=== PATIENT | male | born 1945 | race African-American/Black ===

== ENCOUNTER 2020-11-07 03:18 | Inpatient (IN) | payer MEDICARE ==
[2020-11-07] MEDS ORDERED: Calcium Chloride 1 GM/10 ML Abboject SYRINGE ONE (03:24)
[2020-11-07] MEDS ORDERED: Nitroglycerin 50 MG/250 ML BOT 250 ML ONE (03:36)
[2020-11-07 03:52] LABS: Actual Bicarbonate (HCO3a) 26.7 mEq/L (22-28); Analyzer IN Cardio ER; Base Excess (BEa) -2.5 mEq/L (-2.0 to +3.0); Calcium, Ionized (arterial) 1.13 mmol/L (1.12-1.30); Carboxyhemoglobin (COHb) 0.7 gm% (0.0-3.0); Hemoglobin (Hb) 13.4 g/dL (14.0-18.0); O2 Tension (PaO2), arterial 90.5 mmHg (> 70.0); Potassium - ABG Lab 4.57 mmol/L (3.70-5.30)
[2020-11-07 03:54] LABS: #Basophils 0.1 thou/uL (0.0-0.2); #Eosinphils 0.6 thou/uL (0.0-0.7); #Lymphocytes 5.2 thou/uL (1.20-3.40); #Neutrophils 4.4 thou/uL (1.40-6.50); %Basophils 0.5 % (0.0-1.0); %Lymphocytes 46.1 % (21.0-51.0); %Monocytes 9.3 % (0.0-10.0); %Neutrophils 39.1 % (42.0-75.0); Hemoglobin 14.2 g/dL (14.0-18.0); Mean Corpuscular HGB CONC 31.5 g/dL (32.0-36.0); Mean Corpuscular Hemoglobin 29.4 pg (27.0-31.0); Mean Corpuscular Volume 93.4 fL (78.0-98.0); Mean Platelet Volume 9.6 fL (7.4-10.4); Platelet Count 196 thou/uL (130-400); Red Blood Cell (RBC) Count 4.83 mill/uL (4.70-6.10); White Blood Cell (WBC) Count 11.2 thou/uL (4.8-10.8)
[2020-11-07 03:56] LABS: CO2 Tension 67.6 mmHg (35.0-45.0); Puncture Site RRA; pH, Arterial 7.22 (7.35-7.45)
[2020-11-07 04:03] LABS: PTT 29.7 sec (22.9-36.1); Prothrombin Time 13.1 sec (12.0-14.7)
[2020-11-07 04:11] LABS: ALT (SGPT) 24 U/L (8-55); AST (SGOT) 32 U/L (5-34); Albumin 4.5 g/dL (3.4-4.8); Alkaline Phosphatase 119 U/L (40-110); Anion Gap 25 mmol/L (10-20); BUN (Urea Nitrogen) 55 mg/dL (8.4-25.7); Bilirubin, Total 0.8 mg/dL (0.2-1.2); Calc. Creatinine Clearance 0 mL/min (70-130); Calcium 9.6 mg/dL (7.8-10.44); Carbon Dioxide 23 mmol/L (23-31); Chloride 94 mmol/L (98-107); Globulin 3.8 g/dL (2.4-3.5); Glucose 150 mg/dL (83-110); Potassium 4.8 mmol/L (3.5-5.1); Protein, Total 8.3 g/dL (5.8-8.1); Sodium 137 mmol/L (136-145)
[2020-11-07 04:27] LABS: SARS-CoV-2 NAA Rapid Test Not Detected (NotDetected)
[2020-11-07 04:32] LABS: CKMB 2.4 ng/mL (0-6.6)
[2020-11-07] MEDS ORDERED: Aspirin Chewable 81 MG TAB ONE (05:00)
[2020-11-07] MEDS ORDERED: Docusate 100 MG CAP PO PRN (05:33)
[2020-11-07] MEDS ORDERED: Ondansetron ODT 4 MG TAB PO PRN (05:33)
[2020-11-07] MEDS ORDERED: Ondansetron PF 4 MG/2 ML Vial IVP PRN (06:42)
[2020-11-07 06:47] VITALS: BMI 23.1
[2020-11-07] MEDS: NIFEdipine XL 90 MG TAB PO SCH (08:00)
[2020-11-07] MEDS: Famotidine 20 MG TAB PO SCH (08:00)
[2020-11-07] MEDS: Carvedilol 3.125 MG TAB PO SCH ×2 (08:00→20:51)
[2020-11-07] MEDS: hydrALAZINE 25 MG TAB PO SCH ×2 (08:01→20:49)
[2020-11-07] MEDS ORDERED: Non-Formulary Item 1 EACH (Ferric Citrate [Auryxia] 210 MG Tablet) PO SCH (09:00)
[2020-11-07] MEDS ORDERED: Lisinopril 5 MG TAB PO SCH (09:00)
[2020-11-07] MEDS ORDERED: Heparin 5,000 UNITS/ML VIAL SC SCH (09:00)
[2020-11-07] MEDS: Aspirin 325 MG TAB PO SCH (09:09)
[2020-11-07 10:58] LABS: Magnesium 1.6 mg/dL (1.6-2.6)
[2020-11-07 11:05] LABS: Troponin I 0.341 ng/mL (< 0.028)
[2020-11-07 11:15] LABS: HBSAg Index 0.24 S/CO (0-0.99); Hep B Surf Ag Non-Reactive S/CO (NonReactive)
[2020-11-07] MEDS ORDERED: Communication Order-Pharmacy FS ONE (14:32)
[2020-11-07 14:35] LABS: Troponin I 0.397 ng/mL (< 0.028)
[2020-11-07] MEDS ORDERED: Heparin 25,000 units/D5W 500 ML IVPB SCH (14:45)
[2020-11-07] MEDS: Heparin 10,000 UNITS/ 10 ML VIAL SLOW IVP SCH (15:50)
[2020-11-07 16:54] LABS: Hemoglobin 12.5 g/dL (14.0-18.0); Platelet Count 125 thou/uL (130-400)
[2020-11-07 17:22] LABS: PTT 214.8 sec (22.9-36.1)
[2020-11-07] MEDS ORDERED: hydrALAZINE 20 MG/ML VIAL SLOW IVP PRN ×2 (21:10→21:22)
[2020-11-08] MEDS ORDERED: Nitroglycerin 2% Ointment 1 INCH/1 GM Packet ONE ×2 (01:53→08:23)
[2020-11-08] MEDS ORDERED: Nitroglycerin 2% Ointment 1 INCH/1 GM Packet TOP SCH (02:00)
[2020-11-08] MEDS ORDERED: Acetaminophen 500 MG TAB PO PRN (02:12)
[2020-11-08] MEDS ORDERED: Nitroglycerin 50 MG/250 ML BOT 250 ML ONE (03:12)
[2020-11-08] MEDS: Nitroglycerin 50 MG/250 ML BOT 250 ML IVPB SCH ×2 (03:15→12:42)
[2020-11-08 03:37] LABS: #Eosinphils 0.2 thou/uL (0.0-0.7); #Lymphocytes 0.9 thou/uL (1.20-3.40); #Monocytes 0.6 thou/uL (0.11-0.59); #Neutrophils 3.4 thou/uL (1.40-6.50); %Basophils 0.6 % (0.0-1.0); %Eosinophils 4.7 % (0.0-10.0); %Lymphocytes 17.4 % (21.0-51.0); %Monocytes 12.2 % (0.0-10.0); %Neutrophils 65.1 % (42.0-75.0); Mean Corpuscular HGB CONC 32.3 g/dL (32.0-36.0); Mean Corpuscular Hemoglobin 29.6 pg (27.0-31.0); Mean Corpuscular Volume 91.7 fL (78.0-98.0); Mean Platelet Volume 10.4 fL (7.4-10.4); Platelet Count 123 thou/uL (130-400); RBC Distribution Width 15.9 % (11.5-14.5); Red Blood Cell (RBC) Count 4.05 mill/uL (4.70-6.10); White Blood Cell (WBC) Count 5.3 thou/uL (4.8-10.8)
[2020-11-08 03:48] LABS: Prothrombin Time 13.7 sec (12.0-14.7)
[2020-11-08 03:49] LABS: PTT 40.5 sec (22.9-36.1)
[2020-11-08 03:54] LABS: Anion Gap 21 mmol/L (10-20); BUN (Urea Nitrogen) 33 mg/dL (8.4-25.7); Calc. Creatinine Clearance 9 mL/min (70-130); Calcium 9.1 mg/dL (7.8-10.44); Carbon Dioxide 21 mmol/L (23-31); Chloride 99 mmol/L (98-107); Glucose 92 mg/dL (83-110); Potassium 4.2 mmol/L (3.5-5.1); Sodium 137 mmol/L (136-145)
[2020-11-08] MEDS: Heparin 10,000 UNITS/ 10 ML VIAL SLOW IVP SCH ×2 (04:03→12:29)
[2020-11-08 06:07] LABS: Troponin I 0.242 ng/mL (< 0.028)
[2020-11-08] MEDS: hydrALAZINE 25 MG TAB PO SCH ×3 (08:45→20:14)
[2020-11-08] MEDS: Aspirin 325 MG TAB PO SCH (08:45)
[2020-11-08] MEDS: NIFEdipine XL 90 MG TAB PO SCH (08:45)
[2020-11-08] MEDS: Carvedilol 6.25 MG TAB PO SCH ×2 (08:45→17:06)
[2020-11-08] MEDS: Famotidine 20 MG TAB PO SCH (08:46)
[2020-11-08] MEDS ORDERED: Aspirin Chewable 81 MG TAB PO SCH (09:00)
[2020-11-08] MEDS ORDERED: Communication Order-Pharmacy FS SCH (17:45)
[2020-11-09 04:06] LABS: Anion Gap 20 mmol/L (10-20); BUN (Urea Nitrogen) 46 mg/dL (8.4-25.7); Calc. Creatinine Clearance 7 mL/min (70-130); Calcium 9.1 mg/dL (7.8-10.44); Carbon Dioxide 26 mmol/L (23-31); Chloride 94 mmol/L (98-107); Glucose 92 mg/dL (83-110); Potassium 4.6 mmol/L (3.5-5.1); Sodium 135 mmol/L (136-145)
[2020-11-09 04:49] LABS: Band 2 % (5-11); Eosinophils 7 % (0-10); Lymphocytes 20 % (21-51); MDiff Complete? YES; Mean Corpuscular HGB CONC 32.5 g/dL (32.0-36.0); Mean Corpuscular Hemoglobin 29.7 pg (27.0-31.0); Mean Corpuscular Volume 91.2 fL (78.0-98.0); Mean Platelet Volume 10.2 fL (7.4-10.4); Monocytes 11 % (0-10); Neutrophil 60 % (42-75); Platelet Count 108 thou/uL (130-400); Platelet Morphology Comment Appears Decreased; RBC Distribution Width 15.8 % (11.5-14.5); White Blood Cell (WBC) Count 5.5 thou/uL (4.8-10.8)
[2020-11-09] MEDS: Carvedilol 6.25 MG TAB PO SCH ×2 (06:24→18:18)
[2020-11-09] MEDS: hydrALAZINE 25 MG TAB PO SCH ×3 (08:47→20:19)
[2020-11-09] MEDS: Famotidine 20 MG TAB PO SCH (08:47)
[2020-11-09] MEDS: cloNIDine 0.1mg/24 Hour PATCH TD SCH ×2 (08:49→09:01)
[2020-11-09] MEDS: NIFEdipine XL 90 MG TAB PO SCH (08:53)
[2020-11-09] MEDS ORDERED: Iopamidol 370 76% 100 ML VIAL ONE (08:53)
[2020-11-09] MEDS: Aspirin 325 MG TAB PO SCH (08:54)
[2020-11-09] MEDS ORDERED: Spironolactone 25 MG TAB PO SCH ×2 (09:45→21:00)
[2020-11-09] MEDS ORDERED: Lidocaine 1% (PF) 30 ML VIAL ONE (11:08)
[2020-11-09] MEDS ORDERED: Midazolam HCl 2 mg/2 ml Vial ONE (11:35)
[2020-11-09] MEDS ORDERED: Fentanyl 100 MCG/2 ML VIAL ONE (11:35)
[2020-11-09 15:47] LABS: Hemoglobin 12.5 g/dL (14.0-18.0); Platelet Count 113 thou/uL (130-400)
[2020-11-10 04:19] LABS: Prothrombin Time 13.5 sec (12.0-14.7)
[2020-11-10 04:20] LABS: PTT 31.9 sec (22.9-36.1)
[2020-11-10] MEDS: hydrALAZINE 25 MG TAB PO SCH (04:26)
[2020-11-10 04:29] LABS: Anion Gap 18 mmol/L (10-20); BUN (Urea Nitrogen) 22 mg/dL (8.4-25.7); Band 1 % (5-11); Calc. Creatinine Clearance 10 mL/min (70-130); Calcium 9.2 mg/dL (7.8-10.44); Carbon Dioxide 25 mmol/L (23-31); Chloride 97 mmol/L (98-107); Eosinophils 5 % (0-10); Glucose 74 mg/dL (83-110); Hemoglobin 12.2 g/dL (14.0-18.0); Hypochromia SLIGHT = 6-15 cells (100X) (0-5/hpf); Lymphocytes 18 % (21-51); MDiff Complete? YES; Mean Corpuscular HGB CONC 32.6 g/dL (32.0-36.0); Mean Corpuscular Hemoglobin 30.2 pg (27.0-31.0); Mean Corpuscular Volume 92.5 fL (78.0-98.0); Monocytes 13 % (0-10); Neutrophil 59 % (42-75); Platelet Count 109 thou/uL (130-400); Platelet Morphology Comment Appears Decreased; Potassium 4.3 mmol/L (3.5-5.1); RBC Distribution Width 15.7 % (11.5-14.5); Reactive Lymphocytes 4 % (0-10); Red Blood Cell (RBC) Count 4.05 mill/uL (4.70-6.10); Sodium 136 mmol/L (136-145); White Blood Cell (WBC) Count 5.1 thou/uL (4.8-10.8)
[2020-11-10] MEDS ORDERED: Spironolactone 25 MG TAB PO SCH (08:00)
[2020-11-10] MEDS: Carvedilol 6.25 MG TAB PO SCH (09:38)
[2020-11-10] MEDS: NIFEdipine XL 90 MG TAB PO SCH (09:38)
[2020-11-10] MEDS: Famotidine 20 MG TAB PO SCH (09:38)
[2020-11-10 09:39] VITALS: BP 149/62
[2020-11-10] MEDS: Aspirin 325 MG TAB PO SCH (09:43)
[2020-11-10 11:34] VITALS: TEMP 98
[2020-11-11] MEDS ORDERED: Aspirin Chewable 81 MG TAB PO SCH (09:00)
== END 2020-11-10 13:01 | disposition home or self-care (01) | DRG 280 ==
LOC: ERS 03:18 → EDBD 03:18 → IMCU/EMU 04:51
PROVIDERS: ADMIT Student in an Organized Health Care Education/Training Program; ATTEND Student in an Organized Health Care Education/Training Program
PROC: 5A1D70Z Performance of Urinary Filtration, Intermittent, Less than 6 Hours Per Day (ICD-10-PCS; 2020-11-07)
PROC: 5A09457 Assistance with Respiratory Ventilation, 24-96 Consecutive Hours, Continuous Positive Airway Pressure (ICD-10-PCS; 2020-11-07)
PROC: B2111ZZ Fluoroscopy of Multiple Coronary Arteries using Low Osmolar Contrast (ICD-10-PCS; principal; 2020-11-09)
DX: I13.2 Hypertensive heart and chronic kidney disease with heart failure and with stage 5 chronic kidney disease, or end stage renal disease (principal); N18.6 End stage renal disease; I21.4 Non-ST elevation (NSTEMI) myocardial infarction; I50.23 Acute on chronic systolic (congestive) heart failure; G93.41 Metabolic encephalopathy; J96.21 Acute and chronic respiratory failure with hypoxia; J96.22 Acute and chronic respiratory failure with hypercapnia; I16.1 Hypertensive emergency; Z20.822 Contact with and (suspected) exposure to COVID-19; E11.22 Type 2 diabetes mellitus with diabetic chronic kidney disease; J44.9 Chronic obstructive pulmonary disease, unspecified; K21.9 Gastro-esophageal reflux disease without esophagitis; D63.1 Anemia in chronic kidney disease; E66.9 Obesity, unspecified; I42.0 Dilated cardiomyopathy; I25.10 Atherosclerotic heart disease of native coronary artery without angina pectoris; Z99.2 Dependence on renal dialysis; Z88.5 Allergy status to narcotic agent; Z88.0 Allergy status to penicillin; Z79.82 Long term (current) use of aspirin; Z79.899 Other long term (current) drug therapy; Z68.21 Body mass index [BMI] 21.0-21.9, adult
CPT/HCPCS: 36415; 36600; 71045; 76942; 80048; 80053; 82553; 82805; 83735; 83880; 84100; 84484; 85025; 85610; 85730; 87340; 93005; 93010; 93454; 94640; 94660; 96365; 96366; 99152; J0360; J1644; J2001; J2250; J3010; J7620; Q9967; U0002; U0005